=== PATIENT | male | born 1950 | race Caucasian/White ===

== ENCOUNTER → 2017-02-04 | Outpatient (CLI) | payer OTHER ==
[~2017-02-04] MED LIST: CALC-656 PO; COLON HEALTH PO; CPR500T PO; GLUC-153 PO; METR500T PO; MULT-608 PO; OSTEO BIFLEX PO; OSTEOBYFLEX PO; OXYC-12 PO; PRM25T PO; [UNRECOGNIZED DRUG - OTHER]; multi vitamin PO
--- NOTE | 2017-02-04 13:26 | Diagnostic Imaging Report ---
Three views of the left shoulder. INDICATION: Left shoulder pain. FINDINGS: There is acromioclavicular joint osteoarthritis changes with subchondral sclerosis and hypertrophy. Mild inferior osteophytes are seen. The glenohumeral joint also demonstrates degenerative inferior osteophyte formation. There is no fracture, dislocation or radiopaque foreign body seen. IMPRESSION: Degenerative changes in the glenohumeral and acromioclavicular joints. Dictated by: Dictated on workstation # [id number]
--- NOTE | 2017-02-04 16:19 | Diagnostic Imaging Report ---
Two views of the cervical spine. INDICATION: Upper neck and right-sided facial pain. FINDINGS: There is straightening of the cervical spine with satisfactory alignment of the posterior spinal line. The vertebral body heights are preserved. There is a moderate disc height loss at the C6-C7 level with multilevel anterior osteophytes. No significant posterior osteophyte is seen. Lateral mass alignment of C1 and C2 is satisfactory as demonstrated on open-mouth odontoid view. IMPRESSION: [id number] cervical spine disc degenerative changes. Dictated by: Dictated on workstation # [id number]
== END ==
LOC: RAD 12:15
PROVIDERS: ATTEND Family Medicine
DX: M47.812 Spondylosis without myelopathy or radiculopathy, cervical region (principal); M19.012 Primary osteoarthritis, left shoulder
CPT/HCPCS: 72040; 73030